=== PATIENT | female | born 1940 | race Caucasian/White ===

== ENCOUNTER 2021-11-16 08:57 | Emergency (ER) | payer MEDICARE, OTHER ==
[~2021-11-16] VITALS: Ht 170.2 cm; Wt 49.8 kg
[2021-11-16 10:32] LABS: HEMATOCRIT 44.4 % (37.0-47.0); IMMATURE GRANULOCYTES 0.5 % (0.0-5.0); MEAN CELL VOLUME 102.1 fL CALC (80.0-100.0); MEAN CORPUSCULAR HGB 34.5 pG CALC (26.0-32.0); MEAN CORPUSCULAR HGB CONC 33.8 g/dL CAL (32.0-36.0); NEUT# 7.02 thou/uL (2.00-7.15); RED BLOOD COUNT 4.35 mill/uL (4.20-5.60); RED CELL DISTRI WIDTH 14.3 % (11.5-15.5)
[2021-11-16 10:42] LABS: URINE BILIRUBIN - DIPSTICK NEGATIVE (NEGATIVE); URINE BLOOD DIPSTICK NEGATIVE (NEGATIVE); URINE COLOR YELLOW; URINE GLUCOSE - DIPSTICK NEGATIVE (NEGATIVE); URINE KETONE NEGATIVE (NEGATIVE); URINE LEUK ESTERASE NEGATIVE (NEGATIVE); URINE PH 7.5 (4.5-8.0); URINE PROTEIN - DIPSTICK NEGATIVE (NEG-TRACE); URINE SPECIFIC GRAVITY 1.015; URINE UROBILINOGEN - DIPSTICK 0.2 E.U./dL (0.2)
[2021-11-16 10:44] LABS: URINE NITRITE - DIPSTICK NEGATIVE (Negative)
[2021-11-16 10:46] LABS: ALBUMIN 3.9 g/dL (3.2-5.0); ALKALINE PHOSPHATASE 157 u/l (38-126); AMYLASE 58 u/l (30-110); BUN 14 mg/dL (8-23); BUN/CREATININE RATIO 15 (12-20 (CALC)); CARBON DIOXIDE 19 mmol/l (22-30); CHLORIDE 105 mmol/l (95-108); CREATININE 0.9 mg/dL (0.5-1.0); GFR 60 ML/MIN (>=60 (CALC)); GFR FOR AFR.AMER. > 60 ML/MIN (>=60 (CALC)); LIPASE 23 u/l (23-300); MAGNESIUM 2.2 mg/dL (1.6-2.3); SGOT/AST 39 u/l (9-36); SODIUM 139 mmol/l (137-146); TOTAL PROTEIN 8.9 g/dL (6.3-8.2)
[2021-11-16 10:47] LABS: ANION GAP 21 (6-22 (CALC)); POTASSIUM 5.6 mmol/l (3.5-5.1)
[2021-11-16 10:49] LABS: ACT PARTIAL THROMBO TIME 26.5 SECONDS (20.0-32.5); INTERNATIONAL NORMALIZED RATIO 1.1 RATIO (0.7-1.3)
[2021-11-16] MEDS ORDERED: ZOFRAN4 MG/TAB PO (13:05)
[2021-11-16 14:08] VITALS: BP 140/71
== END 2021-11-16 13:45 | disposition home or self-care (01) ==
LOC: ED 08:57
DX: R13.10 Dysphagia, unspecified (principal); E86.0 Dehydration; G20 Parkinson's disease; Z87.440 Personal history of urinary (tract) infections; Z20.822 Contact with and (suspected) exposure to COVID-19; R94.31 Abnormal electrocardiogram [ECG] [EKG]

== ENCOUNTER 2021-11-29 07:15 | Day surgery (SDC) | payer MEDICARE, OTHER ==
[~2021-11-29] VITALS: Ht 170.2 cm; Wt 52.2 kg
[~2021-11-29 07:15] MED LIST: AMANTADINE100 MG PO; CALCIUM250 M1 PO; CARBIDOPA/LEVOD1 TA4 PO; DIVALPROEX SOD250 MG PO; MEMANTINE HYDROC5 MG PO; SIMVASTATIN40 MG PO; TRAZODONE50 MG PO; VITAMIN B COMPL1 TAB PO; ZOFRAN4 MG/TAB PO
[2021-11-29 09:27] VITALS: BP 112/62
== END 2021-11-29 09:50 | disposition home or self-care (01) ==
LOC: ORM 07:15
PROVIDERS: ATTEND Surgery
PROC: 0DH63UZ Insertion of Feeding Device into Stomach, Percutaneous Approach (ICD-10-PCS; principal; 2021-11-29)
DX: E43 Unspecified severe protein-calorie malnutrition (principal); Z68.1 Body mass index [BMI] 19.9 or less, adult; K29.70 Gastritis, unspecified, without bleeding; G20 Parkinson's disease; F02.80 Dementia in other diseases classified elsewhere, unspecified severity, without behavioral disturbance, psychotic disturbance, mood disturbance, and anxiety; G30.9 Alzheimer's disease, unspecified

== ENCOUNTER 2021-12-27 12:26 | Inpatient (IN) | payer MEDICARE, OTHER ==
[~2021-12-27] VITALS: Ht 170.2 cm; Wt 45.0 kg
[2021-12-27] VITALS (32 sets, daily range): BP systolic 96–156; BP diastolic 49–114
[~2021-12-27 12:26] MED LIST changes: +CARB/LEVO1 TA4 PO; -CARBIDOPA/LEVOD1 TA4 PO
[2021-12-27 13:28] LABS: ALKALINE PHOSPHATASE 140 u/l (38-126); BUN 22 mg/dL (8-23); BUN/CREATININE RATIO 32 (12-20 (CALC)); CARBON DIOXIDE 21 mmol/l (22-30); CHLORIDE 104 mmol/l (95-108); CREATININE 0.7 mg/dL (0.5-1.0); GFR > 60 ML/MIN (>=60 (CALC)); GFR FOR AFR.AMER. > 60 ML/MIN (>=60 (CALC)); SGOT/AST 23 u/l (9-36); SODIUM 137 mmol/l (137-146)
[2021-12-27 13:29] LABS: IMMATURE GRANULOCYTES 0.6 % (0.0-5.0); MEAN CELL VOLUME 104.5 fL CALC (80.0-100.0); MEAN CORPUSCULAR HGB CONC 31.6 g/dL CAL (32.0-36.0); NEUT# 9.86 thou/uL (2.00-7.15); RED BLOOD COUNT 3.58 mill/uL (4.20-5.60); RED CELL DISTRI WIDTH 15.3 % (11.5-15.5)
[2021-12-27 13:30] LABS: ALBUMIN 2.6 g/dL (3.2-5.0); ANION GAP 16 (6-22 (CALC)); BILIRUBIN, TOTAL 0.3 mg/dL (0.0-1.4); HEMATOCRIT 37.4 % (37.0-47.0); HEMOGLOBIN 11.8 g/dl (12.0-16.0); POTASSIUM 4.4 mmol/l (3.5-5.1); TOTAL PROTEIN 6.3 g/dL (6.3-8.2)
[2021-12-27 15:03] LABS: URINE BILIRUBIN - DIPSTICK NEGATIVE (NEGATIVE); URINE BLOOD DIPSTICK TRACE-INTACT (NEGATIVE); URINE COLOR YELLOW; URINE GLUCOSE - DIPSTICK NEGATIVE (NEGATIVE); URINE KETONE NEGATIVE (NEGATIVE); URINE PROTEIN - DIPSTICK TRACE mg/dL (NEG-TRACE); URINE UROBILINOGEN - DIPSTICK 0.2 E.U./dL (0.2)
[2021-12-27 15:10] LABS: URINE LEUK ESTERASE LARGE (NEGATIVE); URINE NITRITE - DIPSTICK POSITIVE (Negative)
[2021-12-27 15:15] LABS: URINE BACTERIA MANY hpf; URINE WBC >100 WBC/hpf (0-5)
[2021-12-27] MEDS ORDERED: ALPRAZOLAM0.25 MG PO (15:34)
[2021-12-28] VITALS (56 sets, daily range): BP systolic 83–147; BP diastolic 39–103
[2021-12-28 05:38] LABS: HEMATOCRIT 31.7 % (37.0-47.0); HEMOGLOBIN 10.1 g/dl (12.0-16.0); MEAN CELL VOLUME 105.3 fL CALC (80.0-100.0); MEAN CORPUSCULAR HGB 33.6 pG CALC (26.0-32.0); MEAN CORPUSCULAR HGB CONC 31.9 g/dL CAL (32.0-36.0); RED BLOOD COUNT 3.01 mill/uL (4.20-5.60); RED CELL DISTRI WIDTH 15.2 % (11.5-15.5)
[2021-12-28 05:46] LABS: ANION GAP 10 (6-22 (CALC)); BUN 15 mg/dL (8-23); BUN/CREATININE RATIO 25 (12-20 (CALC)); CARBON DIOXIDE 22 mmol/l (22-30); CHLORIDE 112 mmol/l (95-108); CREATININE 0.6 mg/dL (0.5-1.0); GFR > 60 ML/MIN (>=60 (CALC)); GFR FOR AFR.AMER. > 60 ML/MIN (>=60 (CALC)); MAGNESIUM 2.1 mg/dL (1.6-2.3); POTASSIUM 4.9 mmol/l (3.5-5.1); SODIUM 139 mmol/l (137-146)
[2021-12-29] VITALS (26 sets, daily range): BP systolic 87–159; BP diastolic 43–103
[2021-12-29 05:49] LABS: HEMATOCRIT 32.1 % (37.0-47.0); HEMOGLOBIN 10.4 g/dl (12.0-16.0); MEAN CELL VOLUME 100.6 fL CALC (80.0-100.0); MEAN CORPUSCULAR HGB 32.6 pG CALC (26.0-32.0); MEAN CORPUSCULAR HGB CONC 32.4 g/dL CAL (32.0-36.0); RED BLOOD COUNT 3.19 mill/uL (4.20-5.60); RED CELL DISTRI WIDTH 14.9 % (11.5-15.5)
[2021-12-29 06:01] LABS: ALBUMIN 2.3 g/dL (3.2-5.0); BILIRUBIN, TOTAL 0.2 mg/dL (0.0-1.4); BUN 5 mg/dL (8-23); BUN/CREATININE RATIO 10 (12-20 (CALC)); CARBON DIOXIDE 26 mmol/l (22-30); CHLORIDE 105 mmol/l (95-108); CREATININE 0.4 mg/dL (0.5-1.0); GFR > 60 ML/MIN (>=60 (CALC)); GFR FOR AFR.AMER. > 60 ML/MIN (>=60 (CALC)); MAGNESIUM 1.7 mg/dL (1.6-2.3); SODIUM 136 mmol/l (137-146); TOTAL PROTEIN 5.6 g/dL (6.3-8.2)
[2021-12-29 06:06] LABS: ALKALINE PHOSPHATASE 271 u/l (38-126); ANION GAP 9 (6-22 (CALC)); POTASSIUM 3.6 mmol/l (3.5-5.1); SGOT/AST 50 u/l (9-36)
[2021-12-30] VITALS (16 sets, daily range): BP systolic 82–152; BP diastolic 46–111
[2021-12-30 05:35] LABS: HEMATOCRIT 32.9 % (37.0-47.0); HEMOGLOBIN 10.7 g/dl (12.0-16.0); MEAN CELL VOLUME 99.4 fL CALC (80.0-100.0); MEAN CORPUSCULAR HGB 32.3 pG CALC (26.0-32.0); MEAN CORPUSCULAR HGB CONC 32.5 g/dL CAL (32.0-36.0); RED BLOOD COUNT 3.31 mill/uL (4.20-5.60); RED CELL DISTRI WIDTH 14.9 % (11.5-15.5)
[2021-12-30 06:12] LABS: ALBUMIN 2.3 g/dL (3.2-5.0); ALKALINE PHOSPHATASE 251 u/l (38-126); ANION GAP 7 (6-22 (CALC)); BUN 4 mg/dL (8-23); BUN/CREATININE RATIO 11 (12-20 (CALC)); CARBON DIOXIDE 26 mmol/l (22-30); CHLORIDE 106 mmol/l (95-108); CREATININE 0.4 mg/dL (0.5-1.0); GFR > 60 ML/MIN (>=60 (CALC)); GFR FOR AFR.AMER. > 60 ML/MIN (>=60 (CALC)); MAGNESIUM 1.6 mg/dL (1.6-2.3); POTASSIUM 3.7 mmol/l (3.5-5.1); SGOT/AST 28 u/l (9-36); SODIUM 136 mmol/l (137-146); TOTAL PROTEIN 5.6 g/dL (6.3-8.2)
[2021-12-30 06:13] LABS: BILIRUBIN, TOTAL 0.3 mg/dL (0.0-1.4)
[2021-12-31 05:00] VITALS: BP 128/65
[2021-12-31 05:39] LABS: HEMATOCRIT 32.7 % (37.0-47.0); HEMOGLOBIN 10.6 g/dl (12.0-16.0); MEAN CELL VOLUME 100.3 fL CALC (80.0-100.0); MEAN CORPUSCULAR HGB 32.5 pG CALC (26.0-32.0); MEAN CORPUSCULAR HGB CONC 32.4 g/dL CAL (32.0-36.0); RED BLOOD COUNT 3.26 mill/uL (4.20-5.60); RED CELL DISTRI WIDTH 14.8 % (11.5-15.5)
[2021-12-31 05:59] LABS: ANION GAP 8 (6-22 (CALC)); BUN 6 mg/dL (8-23); BUN/CREATININE RATIO 14 (12-20 (CALC)); CARBON DIOXIDE 26 mmol/l (22-30); CHLORIDE 106 mmol/l (95-108); CREATININE 0.4 mg/dL (0.5-1.0); GFR > 60 ML/MIN (>=60 (CALC)); GFR FOR AFR.AMER. > 60 ML/MIN (>=60 (CALC)); MAGNESIUM 1.7 mg/dL (1.6-2.3); POTASSIUM 3.7 mmol/l (3.5-5.1); SODIUM 137 mmol/l (137-146)
[2021-12-31 07:48] VITALS: BP 126/84
[2021-12-31 10:29] VITALS: BP 139/68
[2021-12-31] MEDS ORDERED: LOPRESSOR25 MG PO (12:04)
[2021-12-31] MEDS ORDERED: TRAMADOL HCL50 MG PO (12:11)
== END 2021-12-31 15:25 | DRG 853 ==
LOC: ED 12:26 → ED-I 14:50 → ED 15:26 → ICU 15:27 → MS2 12-30 14:49
PROVIDERS: Family Medicine; Hospitalist; ADMIT Internal Medicine; ATTEND Internal Medicine
PROC: 0T9B70Z Drainage of Bladder with Drainage Device, Via Natural or Artificial Opening (ICD-10-PCS; principal; 2021-12-28)
PROC: 0JB70ZZ Excision of Back Subcutaneous Tissue and Fascia, Open Approach (ICD-10-PCS; 2021-12-28)
DX: A41.9 Sepsis, unspecified organism (principal); L89.154 Pressure ulcer of sacral region, stage 4; N39.0 Urinary tract infection, site not specified; E46 Unspecified protein-calorie malnutrition; Z68.1 Body mass index [BMI] 19.9 or less, adult; L89.150 Pressure ulcer of sacral region, unstageable; G20 Parkinson's disease; C44.40 Unspecified malignant neoplasm of skin of scalp and neck; C44.90 Unspecified malignant neoplasm of skin, unspecified; E78.5 Hyperlipidemia, unspecified; F32.A Depression, unspecified; F41.9 Anxiety disorder, unspecified; R32 Unspecified urinary incontinence; B95.61 Methicillin susceptible Staphylococcus aureus infection as the cause of diseases classified elsewhere; Z85.038 Personal history of other malignant neoplasm of large intestine; Z92.3 Personal history of irradiation; Z92.21 Personal history of antineoplastic chemotherapy; Z93.1 Gastrostomy status; Z87.440 Personal history of urinary (tract) infections; Z20.822 Contact with and (suspected) exposure to COVID-19
CPT/HCPCS: J0131; J1650; J3370; J3475; J3490; Q9967; S0164

== ENCOUNTER 2021-12-31 22:57 | Emergency (ER) | payer MEDICARE, OTHER ==
[~2021-12-31] VITALS: Ht 170.2 cm; Wt 48.0 kg
[~2021-12-31 22:57] MED LIST changes: +ALPRAZOLAM0.25 MG PO; +LOPRESSOR25 MG PO; +TRAMADOL HCL50 MG PO
[2021-12-31 23:15] VITALS: BP 131/90
[2021-12-31 23:30] VITALS: BP 152/89
[2021-12-31 23:45] VITALS: BP 142/84
[2022-01-01] VITALS (13 sets, daily range): BP systolic 129–157; BP diastolic 75–92
== END 2022-01-01 03:26 ==
LOC: ED 22:57
DX: Z43.1 Encounter for attention to gastrostomy (principal); G20 Parkinson's disease; F41.9 Anxiety disorder, unspecified; Z85.048 Personal history of other malignant neoplasm of rectum, rectosigmoid junction, and anus; Z92.21 Personal history of antineoplastic chemotherapy

== ENCOUNTER 2022-01-04 10:34 | Inpatient (IN) | payer MEDICARE, OTHER ==
[2022-01-04] VITALS (56 sets, daily range): BP systolic 96–169; BP diastolic 50–104
[~2022-01-04] VITALS: Ht 152.4 cm; Wt 42.3 kg
--- NOTE | 2022-01-04 10:34 | NUR ---
PT ARRIVES TO ER VIA EMS FROM [facility] FOR REPORTED DIFFICULTY BREATHING, COUGH, ACCELERATED HR. PT PRESENTS WITH JOSÉ MIGUEL FROM FACILITY
[2022-01-04 11:31] LABS: HEMATOCRIT 35.1 % (37.0-47.0); HEMOGLOBIN 11.4 g/dl (12.0-16.0); IMMATURE GRANULOCYTES 0.1 % (0.0-5.0); MEAN CORPUSCULAR HGB 32.5 pG CALC (26.0-32.0); MEAN CORPUSCULAR HGB CONC 32.5 g/dL CAL (32.0-36.0); NEUT# 20.3 thou/uL (2.00-7.15); RED BLOOD COUNT 3.51 mill/uL (4.20-5.60); RED CELL DISTRI WIDTH 15.7 % (11.5-15.5)
[2022-01-04 11:39] LABS: ALBUMIN 2.2 g/dL (3.2-5.0); BILIRUBIN, TOTAL 0.4 mg/dL (0.0-1.4); CHLORIDE 110 mmol/l (95-108); CREATININE 0.5 mg/dL (0.5-1.0); GFR > 60 ML/MIN (>=60 (CALC)); GFR FOR AFR.AMER. > 60 ML/MIN (>=60 (CALC)); SGOT/AST 32 u/l (9-36); SODIUM 138 mmol/l (137-146); TOTAL PROTEIN 5.4 g/dL (6.3-8.2)
[2022-01-04 11:40] LABS: POTASSIUM 4.1 mmol/l (3.5-5.1)
[2022-01-04 11:41] LABS: ALKALINE PHOSPHATASE 119 u/l (38-126); ANION GAP 16 (6-22 (CALC)); BUN 40 mg/dL (8-23); BUN/CREATININE RATIO 80 (12-20 (CALC)); CARBON DIOXIDE 16 mmol/l (22-30)
[2022-01-04 11:45] LABS: URINE BILIRUBIN - DIPSTICK NEGATIVE (NEGATIVE); URINE BLOOD DIPSTICK TRACE-INTACT (NEGATIVE); URINE COLOR YELLOW; URINE GLUCOSE - DIPSTICK NEGATIVE (NEGATIVE); URINE KETONE TRACE mg/dL (NEGATIVE); URINE LEUK ESTERASE TRACE (NEGATIVE); URINE PH 5.5 (4.5-8.0); URINE UROBILINOGEN - DIPSTICK 0.2 E.U./dL (0.2)
[2022-01-04 11:46] LABS: URINE NITRITE - DIPSTICK NEGATIVE (Negative); URINE PROTEIN - DIPSTICK Trace mg/dL (NEG-TRACE)
--- NOTE | 2022-01-04 14:05 | NUR ---
PATIENT APPEARED IN ER WITH ELEVATED RESPIRATORY RATE, HR, AND AFTER LABS RETURNED, ELEVATED LACTIC AND WBC. IVF WERE STARTED IMMEDIATELY. TEMP ON ARRIVAL WAS 100.8 RECTAL. PATIENT HAS A NECROTIC SACRAL ULCER APPROX. 5 CM BY 5.5 CM WITH A MOSTLY ROUND APPEARANCE. PATIENT HAS LOOSE, WATERY STOOL WITH A FOUL ODOR WELL. HER ABDOMEN IS FIRM. A PEG TUBE IS IN PLACE, BUT NOT IN USE. A VALDEZ CATH IS IN PLACE DRAINING DARK YELLOW URINE. CENTRAL LINE PLACEMENT BY DR. ROBERTS IN RIGHT GROIN. PATIENT STABLE AND TALKING. 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 THE DAUGHTER WAS CONTACTED ABOUT THE PATIENT'S CONDITION.
--- NOTE | 2022-01-04 15:17 | NUR ---
Admission Note Report Given to: Transported by: Wheelchair X Stretcher Transported with: X Nurse Transporter X Patent IV X O2 X Measurement Superintendent Location: X ICU MS2 PT TRANSPORTED TO ICU VIA NURSE MONITOR WITH RT
--- NOTE | 2022-01-04 16:48 | NUR ---
BIPAP STANDBY. PLACED ON 4L NC.
--- NOTE | 2022-01-04 17:00 | NUR ---
RT HAS REMOVED BIPAP AND PLACED PT ON HUMIDIFIED 6L. PT O2 SAT 92%
--- NOTE | 2022-01-04 17:01 | NUR ---
PT ARRIVED FROM ED WITH RN AND RT. PT HAS BIPAP IN PLACE ON 40%. PT IS A&O TO SELF AND PLACE. PT IS ABLE TO FOLLWO COMMANDS AND MAKE HER NEEDS KNOWN. PT HAS NO C/O PAIN OR CP. PT HAS WEAK BEADING SAWYER AND GENERALIZED WEAKNESS TO ALL EXTREMITIES. PT HAS HELL PROTECTORS IN PLACE, NO OPEN WOUNDS TO PT HEELS. PT HAS A LLE SKIN TEAR, SCALY, DRY, ECCHYMOTIC AND NOTATED ABRAIONS ALL OVER. PT HAS SCARAL WOUND. CX WAS OBTAINED, AND PICTURES WERE DOCUMENTED AND PLACED IN PT CHART. PT HAS RAISED SKIN LESION TO LEFT HAIRLINE, AND LEFT PROTRUDING LESION UNDER PT LEFT EAR. PT HAS TELE IN PLACE WITH HR 126. PT HAS PEG SITE FILLED WITH A DARK BROWN COLOR. CONTENTS WERE ASPIRATED AND HAD FOUL ODOR OF FECAL MATTER. DR WAS MADE AWARE. 12 FR VALDEZ WAS PLACED PER DR ORDER. PT HAS RIGHT GROIN CL, DRESSING CDI, VANCO IS RUNNING. PT HAS BEEN ORIENTED TO ROOM, AND CALL LIGHT HAS BEEN PLACED NEAR PT. PT SAFETY PRECAUTIONS IN PLACE. PT WILL CONTINUED TO BE MONITORED.
--- NOTE | 2022-01-04 19:05 | NUR ---
REPORT RECEIVED BY Yair COX RN AT BEDSIDE. PT RESTING COMFORTABLY. CARE OF PT ASSIGNED TO Raji MARTINEZ RN.
--- NOTE | 2022-01-04 20:30 | NUR ---
PHYSICAL ASSESMENT COMPLETE. PT CURRENTLY DENIES PAIN OR DISCOMFORT. SCHEDULED MEDICATIONS AND PRN MEDICATION ADMINISTERED, SEE E-MAR. FLUIS BOLUS 0F [address] HARO ORDERS GIVEN. PT HAS A 12 G VALDEZ INSERTED AND SECURED AND RUNNING TO GRAVITY. PT DENIES ANY NEEDS AT THIS TIME. PLAN OF CARE REVIEWED, PT DENIES QUESTIONS, VERBALIZES UNDERSTANDING. ITEMS WITHIN REACH, BED LOCKED IN LOW POSITION W/ BEDRAILS UP X2. CALL LARES WITHIN REACH, AGREES TO CALL PRN.
--- NOTE | 2022-01-04 23:17 | NUR ---
PT RESTING WITH EYES CLOSED; IN NO APPARENT DISTRESS; RESTRAITS RELEASED AND REAPPLIED FOR NURSING CARE; VALDEZ CATHETER IS SECURE AND FLOWING TO GRAVITY; ST WITH PVCS ON HEART MONITOR; IV ACCESS IN [facility] GROIN IS INTACT AND PATENT; CALL LIGHT WITHIN REACH; WILL CONTINUE TO MONITOR.
[2022-01-05] VITALS (27 sets, daily range): BP systolic 100–144; BP diastolic 54–73
--- NOTE | 2022-01-05 02:40 | NUR ---
PT SLEEPING COMFORTABLE, NO APPARENT DISTRESS. RT IN ROOM ADJUSTING O2.
--- NOTE | 2022-01-05 04:00 | NUR ---
PT RESTING IN BED, NO SIGNS OF DISTRESS NOTED. PT VOICES NO NEEDS OR COMPLAINTS AT THIS TIME. CALL LIGHT IN REACH, CONTINUE TO MONITOR.
[2022-01-05 05:17] LABS: MEAN CELL VOLUME 99.3 fL CALC (80.0-100.0); MEAN CORPUSCULAR HGB CONC 33.2 g/dL CAL (32.0-36.0); RED BLOOD COUNT 2.7 mill/uL (4.20-5.60); RED CELL DISTRI WIDTH 15.4 % (11.5-15.5)
--- NOTE | 2022-01-05 05:22 | NUR ---
BLOOD DRAW. PT TOLERATED PROCEDURE WELL.
[2022-01-05 05:24] LABS: HEMATOCRIT 26.8 % (37.0-47.0); HEMOGLOBIN 8.9 g/dl (12.0-16.0)
[2022-01-05 05:40] LABS: BUN 25 mg/dL (8-23); BUN/CREATININE RATIO 58 (12-20 (CALC)); CHLORIDE 114 mmol/l (95-108); CREATININE 0.4 mg/dL (0.5-1.0); GFR > 60 ML/MIN (>=60 (CALC)); GFR FOR AFR.AMER. > 60 ML/MIN (>=60 (CALC)); MAGNESIUM 1.9 mg/dL (1.6-2.3); SODIUM 142 mmol/l (137-146)
[2022-01-05 06:06] LABS: ANION GAP 7 (6-22 (CALC)); CARBON DIOXIDE 24 mmol/l (22-30); POTASSIUM 3.2 mmol/l (3.5-5.1)
--- NOTE | 2022-01-05 08:00 | NUR ---
PATIENT IS A/O , 2MM PERRL BILATERAL EYES. APPEARS SLEEPY, WAS ABLE TO FOLLOW COMMANDS AND HELP WITH TURNING SIDE TO SIDE TO CLEAN HER UP, HAD A LOOSE AND FIRM BOWEL MOVEMENT. SACARL WOUND IS YELLOW, RED AROUND THE EDGES, SMELLS BAD, PATIENT STATED THAT SHE DOES HAVE SOME PAIN DOWN THERE. NEW DRESSING APPLIED. BED BATH GIVEN. SHEETS CHAHNGED. COOL/DRY SKIN, APPLIED WARM BLANKETS. WOUND ON HER LEFT LOWER ARM, CLEAN DRY AND INTACT. DIMINISHED LUNG SOUNDS. ABDOMEN FLAT, NON DISTENDED, NON TENDER, ACTIVE BOWEL SOUNDS. BRUSIES AND SCABS SCATTERED THROUGHOUT HER BODY. EDEMA BILATERAL FEET 1+ PITTING. WEAK PEDAL PULSES, PURPLE BOOTS ARE ON, LOWER LEGS ELEVATED WITH THE BOOTS. SAEFTY MEASURES IN PLACE. CALL LIGHT IN REACH. WILL CONTINUE TO MONITOR PER HOSPITAL'S POLICY.
--- NOTE | 2022-01-05 10:00 | NUR ---
daughter is at bedside, watching tv with her. update was given.
--- NOTE | 2022-01-05 11:00 | NUR ---
NASIR FROM "[facility]", DIDNT HAVE PATIENT CODE, WAS UNABLE TO VERIFY IF WHAT HE WAS SAYING WAS TRUE. NO UPDATE WAS GIVEN.
--- NOTE | 2022-01-05 13:00 | NUR ---
DR. HAIRSTON AT BEDSIDE, TALKING ABOUT A PROCEDURE FOR TOMORROW MORNING.
--- NOTE | 2022-01-05 14:38 | NUR ---
PATIENT GAVE VERBAL CONSENT ALSO RECIEVED A VERBAL CONSENT FROM HER DAUGHTER TO FOLLOW THROUGH WITH THE PROCEDURE.
--- NOTE | 2022-01-05 15:47 | NUR ---
patient had another bowel movement, liquid and brown. patient was washed up, new pad placed on bed, new wound dressing applied. hallmark was put on the TV per patient's request. now patient is resting in bed.
--- NOTE | 2022-01-05 17:00 | NUR ---
PATIENT RECIEVED ORAL CARE EVERY TWO HOURS, HOSPITAL'S LIP BALM WAS APPLIED ON HER CRACKED LIPS WELL. ORAL CARE LOOKS MUCH BETTER NOW THAN EARLIER THIS MORNING. PATIENT WILL REMAIN NPO FOR DEBRIDMENT/WOUND VAC WITH DR. HAIRSTON TOMORROW MORNING. NORMAL SALINE STILL RUNNING FOR HYDRATION.
--- NOTE | 2022-01-05 18:35 | NUR ---
patient is clean, wound dressing clean dry and intact, vitals are stable. safety measures in place. oral care provided once more. tv on. call light in reach.
--- NOTE | 2022-01-05 19:03 | NUR ---
REPORT RECEIVED BY Amy BENNETT RN AT BEDSIDE. PT RESTING COMFORTABLY. CARE OF PT ASSIGNED TO Raji MARTINEZ RN.
--- NOTE | 2022-01-05 20:03 | NUR ---
PT ADMISSION ASSESSMENT COMPLETED AT THIS TIME; PT ALERT AND ORIENTED; DENIES ANY PAIN; NO N/V; C/O OF SHORTNESS OF BREATH UPON EXERTION; RESP ARE REGULAR BUT SHALLOW; LUNG SOUNDS DIMINISHED THROUGHOUT; SKIN COLOR WNL; WEAK PULSES; 2+ EDEMA TO BILATERAL FEET; ST ON HEART MONITOR; PEG TUBE PRESENT NON- FUNCTIONING; PT IS NPO; VALDEZ CATHETER DRAINING CLEAR YELLOW URINE TO GRAVITY; TRIPLE FEMORAL CENTRAL LINE FLUSHED AND PATENT; NO REDNESS OR EDEMA NOTED TO SITE; PLAN OF CARE/MEDS EXPLAINED; CALL LIGHT WITHIN REACH; WILL CONTINUE TO MONITOR.
--- NOTE | 2022-01-06 00:25 | NUR ---
PT RESTING WITH EYES CLOSED; IN NO APPARENT DISTRESS; VALDEZ CATHETER IS SECURE AND FLOWING TO GRAVITY; SR WITH PVCS ON HEART MONITOR; TRIPLE LUMEN FEMORAL LINE IS INTACT AND PATENT; CALL LIGHT WITHIN REACH; WILL CONTINUE TO MONITOR.
--- NOTE | 2022-01-06 02:02 | NUR ---
PT RESTING IN BED, NO SIGNS OF DISTRESS NOTED, RESP EVEN AND UNLABORED. PT VOICES NO NEEDS OR COMPLAINTS AT THIS TIME. CALL LIGHT IN REACH, CONTINUE TO MONITOR.
[2022-01-06 05:42] LABS: HEMATOCRIT 28.3 % (37.0-47.0); HEMOGLOBIN 9.2 g/dl (12.0-16.0); MEAN CELL VOLUME 101.1 fL CALC (80.0-100.0); MEAN CORPUSCULAR HGB 32.9 pG CALC (26.0-32.0); MEAN CORPUSCULAR HGB CONC 32.5 g/dL CAL (32.0-36.0); RED BLOOD COUNT 2.8 mill/uL (4.20-5.60)
[2022-01-06 05:56] LABS: BUN 13 mg/dL (8-23); BUN/CREATININE RATIO 34 (12-20 (CALC)); CARBON DIOXIDE 21 mmol/l (22-30); CHLORIDE 118 mmol/l (95-108); CREATININE 0.4 mg/dL (0.5-1.0); GFR > 60 ML/MIN (>=60 (CALC)); GFR FOR AFR.AMER. > 60 ML/MIN (>=60 (CALC)); MAGNESIUM 1.9 mg/dL (1.6-2.3); SODIUM 146 mmol/l (137-146)
[2022-01-06 05:58] LABS: ANION GAP 10 (6-22 (CALC)); POTASSIUM 2.9 mmol/l (3.5-5.1)
--- NOTE | 2022-01-06 07:00 | NUR ---
PT IS RESTING IN BED, PT WAKES TO VERBAL STIMULI. PT IS A&O X3. PT HAS NO C.O PAIN, SOB OR ANY CP. PT HAS HAD A SMALL BM AND HAS BEEN CLEANED. PT IS ABLE TO ASSIST WITH TURNING. PT HAS GENERAL WEAKNESS. PT IS ABLE TO FOLLOW COMMANDS TO BEST, AND IS ABLE TO VOICE NEEDS OR CONCERNS. POC WAS DISCUSSED WITH PT. PT UNDERSTANDS WITH HEAD NOD. PT VSS. PT HAD NS IVF RUNNING @ 125ML/HR AND PT HAS VANCO, INFUSION IS ALMOST COMPLETE. PT HAS SAFETY PRECAUTIONS IN PLACE AND CALL LIGHT NEAR. WILL CONTINUE TO MONITOR BRADEN.
--- NOTE | 2022-01-06 07:50 | NUR ---
Patient is screened for physical medicine intervention and would benefit from PT and OT consults if medical agrees
--- NOTE | 2022-01-06 09:35 | NUR ---
PT IS SLEEPING BUT EASILY AROUSED. PT HAS K INFUSING PER PROTOCOL, PT HAS BEEN UPDATED ON POC. SURGERY HAS BEEN CANCELLED DUE TO HYPOKALEMIA. PT HAS NO CHANGE TO ASSESSMENT, PT WILL CONTINUE TO MONITOR.
--- NOTE | 2022-01-06 09:45 | NUR ---
S: FRANCO CANTU is a 81 F who presents with sepsis, pneumonia, bacteremia. She has a history of arthritis, chemotherapy, seizure disorder, Parkinson's disease, and anxiety. All medications in patient's chart were reviewed. O: VS: BP 122/64 mmHg, P 129 bpm, RR 32 bpm,T 96.9 F W 52 kg, HT 5ft7in, Scr= 0.4 mg/dL, CrCl= 37.45 ml/min A: Blood culture shows Gram positive cocci in 4 of 4 bottles. Wound culture shows Escherichia coli with sensitity to Zosyn. P: Patient is on Zosyn 3.375 g IV q6h and fluconazole 200 mg IV q24h. Vancomycin ordered for pharmacy to dose. Start Vancomycin 750 mg IV Q12H. Vancomycin trough is drawn before the 4th dose on 01/07/2022 at 1700. Vancomycin goal trough is between 15-20 mcg/ml.
--- NOTE | 2022-01-06 11:56 | NUR ---
SPOKE TO PT DAUGHTER AND PROVIDED UPDATE.
--- NOTE | 2022-01-06 14:00 | NUR ---
PT WAS PROVIDED SOME THICKNED WATER, WHILE PT WAS DRINKING THIN LIQUIDS, PT BEGAN TO COUGH. DR WAS MADE AWARE. PT HAS NO C/O PAIN OR SOB. NO CHANGE TO PT ASSESSMENT. PT HAS CALL LIGHT NEAR AND TV WAS TURNED ON PER PT REQUESTS. WILL CONTINUE TO MONITOR PT.
--- NOTE | 2022-01-06 16:00 | NUR ---
PT IS SITTING UP IN BED WATCHING TV, INFORMED PT I WOULD LIKE TO BATHE HER, SHE STATED SHE WANTED TO WATCH THIS;REFERENCING TO THE TV. WILL ATTEMPT TO BATHE AT A LATER TIME. PT HAS NO C/O PAIN OR SOB. PT HAS CALL LIGHT NEAR AND WILL CONTINUE TO MONITOR.
--- NOTE | 2022-01-06 16:57 | NUR ---
Pt screened for OT intervention. Pt would benefit from skilled OT evaluation and services.
--- NOTE | 2022-01-06 17:18 | NUR ---
PRELIMINARY BLOOD CULTURE RESULTS CALLED TO DR TALBOT 12/23 GROWING GRAM + COCCI NO NEW ORDERS
--- NOTE | 2022-01-06 18:11 | NUR ---
PT HAD SMALL BM, PT WOUND DRESSING HAS BEEN CHANGED. PT HAS NO C/O PAIN. PT HAS NO CHANGE TO ASSESSMENT. PT HAS CALL LIGHT NEAR. PT WAS OFFERED FLUIDS. WILL CONTINUE TO MONITOR PT
--- NOTE | 2022-01-06 19:50 | NUR ---
awake. watching tv. nad. under ground miner shows sinus tach. o2 cont per nc. has dsg to coccyx cdi. skin in poor condition. scabs, skin tears & dressings on arms & legs. pt laying on back. spoke @ length regarding side to side position only. pt verbalized understanding. peg tube in place & is clamped. po fluids taken fair. santa cath in place. urine clear yellow. bilat heel protectors on. turned & repositioned. requires total care for all needs.
[2022-01-06 19:53] VITALS: BP 149/111
[2022-01-06 20:04] VITALS: BP 146/100
--- NOTE | 2022-01-06 21:00 | NUR ---
requested typesetting supervisor check on status of air mattress. typesetting supervisor spoke to bernadette carr. mattress would be here in the morning.
[2022-01-06 21:37] VITALS: BP 170/94
--- NOTE | 2022-01-06 21:50 | NUR ---
lab here. blood drawn.
[2022-01-06 22:00] VITALS: BP 154/92
[2022-01-06 22:20] LABS: ANION GAP 10 (6-22 (CALC)); BUN 11 mg/dL (8-23); BUN/CREATININE RATIO 31 (12-20 (CALC)); CARBON DIOXIDE 18 mmol/l (22-30); CHLORIDE 118 mmol/l (95-108); CREATININE 0.4 mg/dL (0.5-1.0); GFR > 60 ML/MIN (>=60 (CALC)); GFR FOR AFR.AMER. > 60 ML/MIN (>=60 (CALC)); POTASSIUM 3.2 mmol/l (3.5-5.1); SODIUM 143 mmol/l (137-146)
[2022-01-06 23:00] VITALS: BP 164/85
[2022-01-07] VITALS (23 sets, daily range): BP systolic 109–173; BP diastolic 53–126
--- NOTE | 2022-01-07 00:05 | NUR ---
PATIENT GIVEN PER ORDER 2MG IV ATIVAN FOR ANXIETY AT THIS TIME. SIDERAILS ARE UP CALL LIGHT IS WITHIN REACH. WILL CONTINUE TO MONITOR.
--- NOTE | 2022-01-07 01:00 | NUR ---
eyes closed. no distress.
--- NOTE | 2022-01-07 02:00 | NUR ---
eyes closed. no distress. hall monitor shows sinus tach pvcs.
--- NOTE | 2022-01-07 03:00 | NUR ---
eyes closed. no distress. santa draining well.
--- NOTE | 2022-01-07 04:00 | NUR ---
eyes closed. no apparent distress.
--- NOTE | 2022-01-07 05:00 | NUR ---
RIGHT FEMORAL TRIPLE LUMEN LINES FLUSHED PER PROTOCOL AND LABS DRAWN AT THIS TIME. EMS #[id number] GAUGE IV REMOVED FROM RIGHT FOREARM AT THIS TIME. PATIENT RESTED WITH EYES CLOSES AND RESPIRATIONS EASY AND UNLABORED. SIDERAILS ARE UP CALL LIGHT IS WTIHIN REACH.
[2022-01-07 05:17] LABS: HEMATOCRIT 28.5 % (37.0-47.0); HEMOGLOBIN 9.4 g/dl (12.0-16.0); IMMATURE GRANULOCYTES 0.4 % (0.0-5.0); MEAN CORPUSCULAR HGB 32.6 pG CALC (26.0-32.0); NEUT# 17.22 thou/uL (2.00-7.15); RED BLOOD COUNT 2.88 mill/uL (4.20-5.60); RED CELL DISTRI WIDTH 16.2 % (11.5-15.5)
[2022-01-07 06:00] LABS: ALBUMIN 1.8 g/dL (3.2-5.0); BUN 10 mg/dL (8-23); BUN/CREATININE RATIO 25 (12-20 (CALC)); CHLORIDE 116 mmol/l (95-108); CREATININE 0.4 mg/dL (0.5-1.0); GFR > 60 ML/MIN (>=60 (CALC)); GFR FOR AFR.AMER. > 60 ML/MIN (>=60 (CALC)); MAGNESIUM 1.8 mg/dL (1.6-2.3); POTASSIUM 2.9 mmol/l (3.5-5.1); SGOT/AST 36 u/l (9-36); SODIUM 143 mmol/l (137-146); TOTAL PROTEIN 4.7 g/dL (6.3-8.2)
--- NOTE | 2022-01-07 06:00 | NUR ---
monitoring manager shows sinus tach.
[2022-01-07 06:07] LABS: ALKALINE PHOSPHATASE 194 u/l (38-126); ANION GAP 6 (6-22 (CALC)); BILIRUBIN, TOTAL 0.7 mg/dL (0.0-1.4); CARBON DIOXIDE 24 mmol/l (22-30)
--- NOTE | 2022-01-07 06:31 | NUR ---
XRAY HERE. PCXR OBTAINED.
--- NOTE | 2022-01-07 07:50 | NUR ---
LEFT A VOICEMAIL FOR HER DAUGHTER, DR. DELACRUZ WANTED TO SPEAK TO HER.
--- NOTE | 2022-01-07 07:53 | NUR ---
CALLED OR, THEY STATED THEY PLAN TO TAKE HER BUT "LATER ON IN THE DAY, UNABLE TO GIVE AN EXACT TIME FOR YOU OF RIGHT NOW". WILL BE REPLACING HER K WITH RIDERS PER DOCTOR'S ORDERS.
--- NOTE | 2022-01-07 08:00 | NUR ---
PATIENT IS A/O X3, ABLE TO MAKE NEEDS KNOWN, SOFT SPOKEN, TREMERS PRESENT, STATED SHE IS NOT COLD. DENIES PAIN AT THIS TIME. LUNGS ARE CLEAR TO DIMINSHED. WET/WEAK COUGH. ACTIVE BOWEL SOUNDS, SOFT, SLIGHTLY TENDER ABDOMEN. FLAT ABDOMEN. EDEMA 2+ RIGHT LOWER ARM/HAND. EDEMA 1/2+ PITTING IN BILATERAL LOWER LEGS, AND 2+ PITTING FEET. SCABS AND BRUSIES SCATTERED THROUGHOUT ARMS AND LEGS. PRIOR SKIN TEAR ON LEFT LOWER ARM, CLEAN DRY AND INTACT DRESSING. HAD A SMALL BM, CLEANED AND BED BATH GIVEN. ORAL CARE PROVIDED. COCCYX WOUND IS CLEAN DRY AND INTACT. 8L O2NC. NON LABOR BREATHING. FLUIDS RUNNING. IV FLUID TUBING REPLACED. FLUSHED CENTRAL LINES. POSSIBLE SUGERY TODAY, NPO, SAFETY MEASURES IN PLACE. CALL LIGHT IN REACH. TV ON AND ON HIGH VOLUME. WILL CONTINUE TO MONITOR PER HOSPITAL POLICY.
--- NOTE | 2022-01-07 08:40 | NUR ---
CALLED PHARMACY SPOKE TO VALENCIA, SHE STATED "GO AHEAD AND GIVE THE POTASSIUM (RIDERS) AND LEAVE THE TIMES THE WAY THEY ARE AND GIVE IT LIKE YOU NORMALLY WILL". THEN CALLED BACK ASKING IF WE CAN CHANGE THE DURATION OF THE K RIDERS DUE TO HER HAVING A CENTRAL LINE, SHE STATED YES IT CAN RUN 20MEQ OVER ONE HOUR WITH CENTRAL LINES. UPDATED .
--- NOTE | 2022-01-07 09:53 | NUR ---
SPOKE TO DAUGHTER MAKSIM, SHE CALLED US BACK, WILL INFORM DR. DELACRUZ.
--- NOTE | 2022-01-07 11:16 | NUR ---
CALLED PLACED FOR WOUND VAC [id number] SPK TO VENECIA GIVEN REF# [id number]
--- NOTE | 2022-01-07 11:21 | NUR ---
patient left to OR with two nurses at bedside from OR. chart sent, vitals stable, saftey measures in place for transfer.
--- NOTE | 2022-01-07 11:27 | NUR ---
DR. DELACRUZ UPDATED DAUGHTER PATI. ALSO INFORMED HER THAT SHE JUST LEFT FOR SURGERY.
--- NOTE | 2022-01-07 13:07 | NUR ---
PULMONOLOGY DR. SAM, CALLED. PATIENT STILL IN O.R. DOCTOR STATED HE WILL TRY AND CALL BACK IN "A COUPLE OF HOURS".
--- NOTE | 2022-01-07 13:30 | NUR ---
PATIENT ARRIVED BACK ON THE FLOOR, STABLE, BEDSIDE REPORT GIVEN BY AGUEDA GIBSON.
--- NOTE | 2022-01-07 13:52 | NUR ---
S: FRANCO CANTU is a 81 F who presents with sepsis, bacteremia, and pneumonia. She has a history of arthritis, chemotherapy, seizure disorder, Parkinson's disease, and anxiety. All medications in patient's chart were reviewed. O: VS: BP 150/86 mmHg, P 125 bpm, RR 35 bpm, T 98.3 F W 52 kg, HT 5 ft7in, Scr= 0.4 mg/dL ,CrCl= 37.45 ml/min Vancomycin trough 01/06/22@1700 = 10 A: Blood culture shows Staphylococcus hominis which is sensitive to vancomycin. Wound culture shows E coli which is sensitive to Zosyn. Vancomycin subtherapeutic. Increase of dose is warranted. P: Patient is on Zosyn 3.375 g IV Q6H, vancomycin 750 mg IV q12h, and fluconazole 200 mg IV Q24H. Vancomycin ordered for pharmacy to dose. Increase Vancomycin to 1 g IV Q12H. Vancomycin trough is drawn before the 4th dose on 01/09/2022 at 0430. Vancomycin goal trough is between 15-20 mcg/ml Pharmacy will follow and or advise on antibiotics use as needed.
--- NOTE | 2022-01-07 14:00 | NUR ---
TELLE PULMONARY CONSULT WAS DONE, RECOMMENDATIONS WILL BE PLACED HIS DR SAM'S NOTES.
--- NOTE | 2022-01-07 14:15 | NUR ---
PATIENT ARRIVED ON THE FLOOR, AGUEDA GIBSON GAVE OFF BEDSIDE REPORT ABOUT THE PATIENT'S SURGERY.
[2022-01-07 16:14] LABS: ALBUMIN 1.9 g/dL (3.2-5.0); ALKALINE PHOSPHATASE 172 u/l (38-126); ANION GAP 7 (6-22 (CALC)); BILIRUBIN, TOTAL 0.8 mg/dL (0.0-1.4); BUN 9 mg/dL (8-23); BUN/CREATININE RATIO 24 (12-20 (CALC)); CARBON DIOXIDE 24 mmol/l (22-30); CHLORIDE 117 mmol/l (95-108); CREATININE 0.4 mg/dL (0.5-1.0); GFR > 60 ML/MIN (>=60 (CALC)); GFR FOR AFR.AMER. > 60 ML/MIN (>=60 (CALC)); POTASSIUM 3.1 mmol/l (3.5-5.1); SGOT/AST 32 u/l (9-36); SODIUM 144 mmol/l (137-146); TOTAL PROTEIN 4.9 g/dL (6.3-8.2)
--- NOTE | 2022-01-07 17:00 | NUR ---
DAUGHTER, PATI, TELLING MOTHER BYE AND THAT SHE WILL BE BACK TOMORROW IN THE LATE MORNING.
--- NOTE | 2022-01-07 19:30 | NUR ---
awake but drowsy. no acute distress. o2 cont per vapotherm. call out clerk shows sinus tach pvcs. rt fem line in place & saline locked. santa cath in place urine clear yellow. peg tube in place & clamped. wound vac cont. turned & repositioned. requires total are for all needs.
--- NOTE | 2022-01-07 20:12 | NUR ---
PATIENT TURNED AND REPOSITIONED IN BED BY STAFF
--- NOTE | 2022-01-07 20:45 | NUR ---
CPT NOT TOLERATED AT THIS TIME
--- NOTE | 2022-01-07 22:01 | NUR ---
hs medications given
--- NOTE | 2022-01-07 23:00 | NUR ---
xray here. pcxr obtained.
[2022-01-08] VITALS (37 sets, daily range): BP systolic 91–143; BP diastolic 42–109
--- NOTE | 2022-01-08 00:20 | NUR ---
PATIENT GIVEN 2MG IV ATIVAN FOR ANXIETY AT THIS TIME. SIDERAILS ARE UP CALL LIGHT IS WITHIN REACH. WILL CONTINUE TO MONITOR.
--- NOTE | 2022-01-08 01:00 | NUR ---
eyes closed. no distress. santa draining well.
--- NOTE | 2022-01-08 02:00 | NUR ---
resting quietly. resps remain shallow.
--- NOTE | 2022-01-08 03:00 | NUR ---
eyes closed. wound vac cont.
--- NOTE | 2022-01-08 04:00 | NUR ---
electrician powerhouse shows sinus tach. no distress.
--- NOTE | 2022-01-08 05:00 | NUR ---
lab here. blood drawn.
[2022-01-08 05:14] LABS: HEMATOCRIT 28.9 % (37.0-47.0); HEMOGLOBIN 9.3 g/dl (12.0-16.0); IMMATURE GRANULOCYTES 1.1 % (0.0-5.0); MEAN CORPUSCULAR HGB 31.8 pG CALC (26.0-32.0); MEAN CORPUSCULAR HGB CONC 32.2 g/dL CAL (32.0-36.0); NEUT# 11.07 thou/uL (2.00-7.15); RED BLOOD COUNT 2.92 mill/uL (4.20-5.60); RED CELL DISTRI WIDTH 16.3 % (11.5-15.5)
--- NOTE | 2022-01-08 05:22 | NUR ---
vitals not transferring from monitor to pts chart. attempted manual entry w/o success. paper vitals on chart.
--- NOTE | 2022-01-08 05:26 | NUR ---
[facility] CALLED DUE TO AIR MATTRESS READING ERROR ON AIR MATTRESS BOARD. [facility] NEUROPSYCHOLOGY MEDICAL CONSULTANT CALL AND WE TRIED TO TROUBLE SHOOT ISSUE TO NO AVAIL. [facility] REPRSENTATIVE STATED TURN MATTRESS OFF PATIENT WILL BE FINE ON MATTRESS AND THEY WILL BE OUT SOON TO FIX ISSUE. THIS NURSE NOTIFIED STUDIO ARTIST OF CONVERSATION WITH [facility] NEUROPSYCHOLOGY MEDICAL CONSULTANT.
[2022-01-08 05:40] LABS: ALBUMIN 1.9 g/dL (3.2-5.0); ALKALINE PHOSPHATASE 156 u/l (38-126); ANION GAP 6 (6-22 (CALC)); BILIRUBIN, TOTAL 0.6 mg/dL (0.0-1.4); BUN 12 mg/dL (8-23); BUN/CREATININE RATIO 28 (12-20 (CALC)); CARBON DIOXIDE 28 mmol/l (22-30); CHLORIDE 116 mmol/l (95-108); CREATININE 0.4 mg/dL (0.5-1.0); GFR > 60 ML/MIN (>=60 (CALC)); GFR FOR AFR.AMER. > 60 ML/MIN (>=60 (CALC)); MAGNESIUM 1.8 mg/dL (1.6-2.3); POTASSIUM 2.9 mmol/l (3.5-5.1); SGOT/AST 29 u/l (9-36); SODIUM 147 mmol/l (137-146); TOTAL PROTEIN 4.8 g/dL (6.3-8.2)
--- NOTE | 2022-01-08 07:01 | NUR ---
AN TX STOPPED EARLY. PT STATES SHE CAN'T HANDLE IT.
--- NOTE | 2022-01-08 07:04 | NUR ---
CPT NOT DONE. PT NOT ABLE TO TOLERATE.
--- NOTE | 2022-01-08 08:00 | NUR ---
Drowsy, but wakes up periodically highly anxious and distressed. Pt alert to place and self. Pt does follow simple commands. Pt reported pain and looked visibily distressed. Pt repositioned and PRN medication given. Pt tachypnic and tachycardic, blood pressure within normal limits. Will continue to monitor closely.
--- NOTE | 2022-01-08 10:00 | NUR ---
PT UNABLE TO TAKE PO MEDICATION. ORDER CURRENTLY SHOWS PT CAN HAVE CLEAR/THIN LIQUIDS. AFTER ASSESSMENT PT UNABLE TO SAFETLY TAKE PO MEDICATIONS OR DRINK FLUIDS. CONCERNED ABOUT ASPIRATION. SPOKE TO CARVER AND CHECKERER SPECIALS REGARDING PTS PEG TUBE BEING ACCESSED. RECEIVED ORDER TO ACCESS PEG TUBE TO GIVE MEDS.
--- NOTE | 2022-01-08 12:00 | NUR ---
No change in pts status at this time. Pt is drowsy but easily arousable. Answers questions appropriately and follows commands. Pt does not look to be distressed. Pt denies pain at this time.
--- NOTE | 2022-01-08 12:15 | NUR ---
PT POSITIVE FOR DVT LOWER EXTREMITY
--- NOTE | 2022-01-08 13:35 | NUR ---
Patient held due to her mutliple medical problems. She is being faithfull positioned per nursing and due to her DVT is not appropriate for OOB at this time
--- NOTE | 2022-01-08 14:15 | NUR ---
Pt daughter/YING Boyd at bedside. Provided detailed update regarding pts condition and treatment plan thus far. Pts daughter requested that pt be changed from a Full Code to a DNR. spoke to Nisha over the phone regarding change in code status. DNR form signed by Nisha and placed in pts chart.
--- NOTE | 2022-01-08 19:23 | NUR ---
REPORT RECEIVED BY THOM GIBSON AT BEDSIDE. PT RESTING COMFORTABLY. CARE OF PT ASSIGNED TO Raji MARTINEZ RN.
--- NOTE | 2022-01-08 20:34 | NUR ---
ASSESSMENT AND VITALS COMPLETED AT THIS TIME. RESPIRATIONS ARE SHALLOW, PT REPORTES SOB ON EXCERTION. NO SIGNS OF DISTRESS, O2 SAT 95% ON VAPOTHERM 25%. HEART RHYTHM IS ST ON MONITOR. BOWEL SOUNDS ARE ACTIVE IN ALL QUADRANTS, LAST REPORTED BM 01/08/22. RADIAL AND PEDAL PULSES ARE WEAK WITH NORMAL CAPILLARY REFILL. TRIPLE LUMEN RIGHT FEMORAL LINE FLUSHES WELL BUT DOES NOT DRAW BLOOD. SITE APPEARS HEALTHY AND PATENT. VALDEZ CATHATER IN PLACE. TUBING UNKINKED AND RUNNING WITH GRAVITY. PT PRESENTS WITH STAGE 4 PRESSURE ULCER ON SACRUM, WOUND VAC IN PLACE RUNNING AT 125 SUCTION. PT DOES NOT COMPLAINS PAIN OR DISCOMFORT. PT STATES NO ADDITIONAL NEEDS AT THIS TIME. ALL SAFETY PRECAUTIONS ARE IN PLACE WITH CALL LIGHT IN REACH. WILL CONTINUE TO MONITOR.
--- NOTE | 2022-01-08 22:00 | NUR ---
PT RESTING WITH EYES CLOSED; IN NO APPARENT DISTRESS; VALDEZ CATHETER IS SECURE AND FLOWING TO GRAVITY; SR WITH PVCS ON HEART MONITOR; TL FEMORAL LINE IS PATENT; CALL LIGHT WITHIN REACH; WILL CONTINUE TO MONITOR.
[2022-01-09] VITALS (51 sets, daily range): BP systolic 89–154; BP diastolic 43–91
--- NOTE | 2022-01-09 02:00 | NUR ---
EYES ARE CLOSED. WOUND VAC CONTINUES AT 125 MMGH.
[2022-01-09 04:28] LABS: HEMATOCRIT 29.8 % (37.0-47.0); HEMOGLOBIN 9.6 g/dl (12.0-16.0); MEAN CELL VOLUME 99.7 fL CALC (80.0-100.0); MEAN CORPUSCULAR HGB 32.1 pG CALC (26.0-32.0); MEAN CORPUSCULAR HGB CONC 32.2 g/dL CAL (32.0-36.0); RED BLOOD COUNT 2.99 mill/uL (4.20-5.60); RED CELL DISTRI WIDTH 16.6 % (11.5-15.5)
[2022-01-09 04:41] LABS: ALBUMIN 2.2 g/dL (3.2-5.0); BILIRUBIN, TOTAL 0.7 mg/dL (0.0-1.4); BUN 15 mg/dL (8-23); BUN/CREATININE RATIO 32 (12-20 (CALC)); CARBON DIOXIDE 28 mmol/l (22-30); CHLORIDE 116 mmol/l (95-108); CREATININE 0.5 mg/dL (0.5-1.0); GFR > 60 ML/MIN (>=60 (CALC)); GFR FOR AFR.AMER. > 60 ML/MIN (>=60 (CALC)); SGOT/AST 31 u/l (9-36); SODIUM 148 mmol/l (137-146); TOTAL PROTEIN 5.3 g/dL (6.3-8.2)
[2022-01-09 04:43] LABS: ALKALINE PHOSPHATASE 235 u/l (38-126); ANION GAP 8 (6-22 (CALC)); POTASSIUM 3.9 mmol/l (3.5-5.1)
--- NOTE | 2022-01-09 04:54 | NUR ---
PT REPOSITIONED ON HER RIGHT SIDE. PT GIVEN PRN MEDICATION FOR 8/10 PAIN. PT STATES SHE IS COMFORTABLE. WILL CONTINUE TO MONITOR.
--- NOTE | 2022-01-09 05:10 | NUR ---
VANCOMYCIN HELD. TROUGH OF 20.
--- NOTE | 2022-01-09 06:04 | NUR ---
Patient is resting quietly in bed. No acute changes noted. IMPROVED HR 102, RR 20. WILL CONTINUE TO MONITOR.
--- NOTE | 2022-01-09 08:00 | NUR ---
Pt drowsy, but following commands and answering questions appropriately. Pt tachycardic received Lopressor IV a few hours earlier. Pt denies pain at this time. All other vital signs are within normal limits. Will continue to monitor closely.
--- NOTE | 2022-01-09 08:07 | NUR ---
FIO2 DECREASED TO 45%.
--- NOTE | 2022-01-09 13:00 | NUR ---
PT STARTED ON JEVITY 1.5 DAILY BOLUS X 5 PER DAY. PLUS 60ML FLUSH BEFORE AND 60 ML FLUSH AFTER TUBE FEED.
--- NOTE | 2022-01-09 13:05 | NUR ---
S: FRANCO CANTU is a 81 F who presents with sepsis, bacteremia, and pneumonia. She has a history of arthritis, chemotherapy, seizure disorder, Parkinson's disease, and anxiety. All medications in patient's chart were reviewed. O: VS: BP 115/69 mmHg, P 100 bpm, RR 20 bpm,T W 52 kg, HT 5 ft 7 in, Scr= 0.5 mg/dL, CrCl= 37.45 ml/min A: Blood culture shows Staphylococcus hominis which is sensitive to vancomycin. Wound culture shows E coli which is sensitive to cefepime. P: Patient is on cefepime 1 g IV Q12H. Vancomycin ordered for pharmacy to dose. Start Vancomycin 750 mg IV Q12H. Vancomycin trough is drawn before the 4th dose on 01/11/2022 at 0430. Vancomycin goal trough is between 15-20 mcg/ml. Pharmacy will follow and or advise on antibiotics use as needed.
--- NOTE | 2022-01-09 19:00 | NUR ---
REPORT RECEIVED BY JASMIN GIBSON AT BEDSIDE. PT RESTING COMFORTABLY. CARE OF PT ASSIGNED TO Raji MARTINEZ RN.
--- NOTE | 2022-01-09 19:55 | NUR ---
PT APPEARS TO BE SLEEPING COMFORTABLY. NO APPARENT DISTRESS. PT ON VAPO THERM 20L AT 40%. R-SUBCLAVIAN TLC WITH NON-OCCLUSIVE DRESSING C/D/I INFUSING D51/2NS. SACARAL DECUBITUS ULCER WITH WOUND VAC IN PLACE RUNNING AT 125MMGH. VALDEZ SECURED TO LEG, TUBING UNKINKED AND UNOBSTRUCTED. DRAINING TO GRAVITY. PT RUNNING ST WITH PVCS. RESPRIATION ARE SHALLOW. WILL CONTINUE TO MONITOR,
--- NOTE | 2022-01-09 22:00 | NUR ---
PT RECEIEVED 532 ML OF JEVITY NUTRITION VIA PEG TUBE. PT TOLERATED PROCEDURE WELL. PT RESTING COMFORTABLY ON AN AIR MATTRESS; PLACED ON HER LEFT SIDE. WILL CONTINUE TO MONITOR.
[2022-01-10] VITALS (94 sets, daily range): BP systolic 84–141; BP diastolic 40–77
--- NOTE | 2022-01-10 02:30 | NUR ---
REMOVED TRIPLE LUMEN RIGHT FEMORAL CATHETER. SIGHT CLEANED; SITCHES REMOVED CLEAN AND INTACT. PT TOLERATEDOCEDURE WELL.
--- NOTE | 2022-01-10 03:52 | NUR ---
PT RESTING WITH EYES CLOSED; VALDEZ CATHETER IS SECURE AND FLOWING TO GRAVITY; St WITH PVCS ON HEART MONITOR; LEFT SUB CLAVIN LINE IS INTACT AND PATENT; CALL LIGHT WITHIN REACH; WILL CONTINUE TO MONITOR.
[2022-01-10 05:31] LABS: HEMATOCRIT 24.8 % (37.0-47.0); HEMOGLOBIN 7.9 g/dl (12.0-16.0); MEAN CORPUSCULAR HGB 31.9 pG CALC (26.0-32.0); MEAN CORPUSCULAR HGB CONC 31.9 g/dL CAL (32.0-36.0); RED BLOOD COUNT 2.48 mill/uL (4.20-5.60); RED CELL DISTRI WIDTH 16.7 % (11.5-15.5)
[2022-01-10 06:02] LABS: ALBUMIN 1.8 g/dL (3.2-5.0); ALKALINE PHOSPHATASE 217 u/l (38-126); BUN 17 mg/dL (8-23); BUN/CREATININE RATIO 40 (12-20 (CALC)); CARBON DIOXIDE 32 mmol/l (22-30); CHLORIDE 110 mmol/l (95-108); CREATININE 0.4 mg/dL (0.5-1.0); GFR > 60 ML/MIN (>=60 (CALC)); GFR FOR AFR.AMER. > 60 ML/MIN (>=60 (CALC)); MAGNESIUM 1.9 mg/dL (1.6-2.3); SGOT/AST 29 u/l (9-36); SODIUM 146 mmol/l (137-146); TOTAL PROTEIN 4.6 g/dL (6.3-8.2)
[2022-01-10 06:04] LABS: ANION GAP 7 (6-22 (CALC)); POTASSIUM 2.9 mmol/l (3.5-5.1)
[2022-01-10 06:05] LABS: BILIRUBIN, TOTAL 0.3 mg/dL (0.0-1.4)
--- NOTE | 2022-01-10 08:00 | NUR ---
pt resting in bed with eyes closed; easily aroused to verbal stimuli; no apparent distress noted at this time; assessment completed; pt alert to person only; appears drowsy; pt denies pain when asked; no n/v noted; resp tachypneic; lungs coarse/ diminished bases; skin color wnl; o2 per vapatherm at 20L with 40% FiO2; o2 sat 94%; construction area manager moist cough noted; hr reg; strong pulses; no edema noted; st 120-130s on monitor; abd soft with bs present; scant loose brown bm noted; pericare per bid writer; peg tube intact with zero residual; peg dressing due to be changed; santa to gravity draining well; cath strap intact; TLC flushed and patent to left subclavian; ivf/meds infusing without complication; no redness or edema noted at site; wound vac intact to sacral wound with low cont suction of 125mmHg; seal good/no leak detected; small drainage/bloody drainage to canaster; air mattress intact; pt repositioned to right side; pillows under left side; feet offloaded; pressure ulcer/eschar noted to right heel; heel protectors; hob elevated; will continue to monitor
--- NOTE | 2022-01-10 08:40 | NUR ---
Dr Alberts present at bedside to assess pt and discuss plan of care; MD informed of elevated HR; will continue to monitor
--- NOTE | 2022-01-10 09:30 | NUR ---
resting with eyes closed; easily aroused; am meds explained and administered; peg tube feed given at this time; o residual noted prior to feed; hob/ aspiration precautions continued; st on monitor; will continue to monitor
--- NOTE | 2022-01-10 10:10 | NUR ---
resting with eyes closed; st on monitor; o2 per vapotherm; iv intact and patent; santa to gravity; repositioned; will continue to monitor
--- NOTE | 2022-01-10 11:18 | NUR ---
PT Herberth present at bedside for eval and treatment
--- NOTE | 2022-01-10 12:00 | NUR ---
resting with eyes closed; st on monitor; santa to gravity; will continue to monitor
--- NOTE | 2022-01-10 14:05 | NUR ---
resting in bed with eyes closed; placed supine for TF; iv intact and patent; no redness or edema noted at site; st on monitor; santa to gravity; call light within reach; will continue to monitor
--- NOTE | 2022-01-10 15:00 | NUR ---
complete bed bath and linen change done; catheter care provided; dressing chnaged to wound vac at this time; see photo on chart; no seal leak detected post dressing change; dressing changed to lfa skin tear and peg tube site; repositioned to left side; hob elevated; will continue to monitor
--- NOTE | 2022-01-10 15:24 | NUR ---
I saw Ms Ochoa this morning for re- exam. She is still bedbound and very fragile. I noticed her tone was slightly decreased and she tolerated ROM of the extremities. She desaturated to 85% during ROM and required total assist for bed mobility. GOals are reset for this patient for 2 more weeks. I plan on progressing her [place] transfer ability working first on bedside sitting. We will monitor and treat closely for therapeutic exercises, transfer training and pre gait activities
--- NOTE | 2022-01-10 15:34 | NUR ---
Angy Santos daughter present at bedside; update provided
--- NOTE | 2022-01-10 16:25 | NUR ---
awake in bed; daughter present at bedside; repositioned to right side; st on monitor; santa to gravity; o2 per vapo; will continue to monitor
--- NOTE | 2022-01-10 17:30 | NUR ---
ermelinda present at bedside; daughter Angy Santos departed
--- NOTE | 2022-01-10 18:23 | NUR ---
pt resting in bed with eyes closed; no apparent distress noted; easily aroused; offers no complaints; iv intact and patent; santa to gravity; repositioned; st on monitor; o2 per vapo therm; call light within reach
--- NOTE | 2022-01-10 20:00 | NUR ---
COMPLETE BED BATH DONE, PATIENT WAS TURNED AND REPOSITIONED.
[2022-01-11] VITALS (30 sets, daily range): BP systolic 85–155; BP diastolic 39–77
[2022-01-11 04:18] LABS: HEMATOCRIT 24.7 % (37.0-47.0); HEMOGLOBIN 7.7 g/dl (12.0-16.0); MEAN CELL VOLUME 101.2 fL CALC (80.0-100.0); MEAN CORPUSCULAR HGB 31.6 pG CALC (26.0-32.0); MEAN CORPUSCULAR HGB CONC 31.2 g/dL CAL (32.0-36.0); RED BLOOD COUNT 2.44 mill/uL (4.20-5.60); RED CELL DISTRI WIDTH 16.8 % (11.5-15.5)
[2022-01-11 04:42] LABS: ALBUMIN 1.8 g/dL (3.2-5.0); ALKALINE PHOSPHATASE 166 u/l (38-126); ANION GAP 4 (6-22 (CALC)); BILIRUBIN, TOTAL 0.3 mg/dL (0.0-1.4); BUN 13 mg/dL (8-23); BUN/CREATININE RATIO 37 (12-20 (CALC)); CARBON DIOXIDE 33 mmol/l (22-30); CHLORIDE 108 mmol/l (95-108); CREATININE 0.4 mg/dL (0.5-1.0); GFR > 60 ML/MIN (>=60 (CALC)); GFR FOR AFR.AMER. > 60 ML/MIN (>=60 (CALC)); POTASSIUM 3.4 mmol/l (3.5-5.1); SGOT/AST 27 u/l (9-36); SODIUM 141 mmol/l (137-146); TOTAL PROTEIN 4.5 g/dL (6.3-8.2)
--- NOTE | 2022-01-11 05:49 | NUR ---
NOTIFIED REGARDING H.H LEVEL OF 7.7 AND KLEVEL OF 3.4 . AWAITING FOR HIS RESPONSE.
--- NOTE | 2022-01-11 06:27 | NUR ---
PT UNABLE TO TOLERATE CPT AT THIS TIME.
--- NOTE | 2022-01-11 08:00 | NUR ---
PT SLEEPING, BUT EASILY AROUSABLE. ANSWERS QUESTIONS APPROPRIATELY. SHOWING NO SIGNS OF DISTRESS. TACHYCARDIC AT REST. BLOOD PRESSURE AND RR WITHIN NORMAL LIMITS. CALL LIGHT WITHIN REACH.
--- NOTE | 2022-01-11 09:52 | NUR ---
PT IS A 81 YOF WHO PRESENTS WITH SEPSIS, BACTEREMIA, PNEUMONIA, AND ULCER INFECTION. ALL MEDS IN PTS CHART WERE REVIEWED. SCR = 1 MG/DL CRCL = 30.5 ML/MIN T = 98.4 F WBC = 9.3 THOUS/UL VANCO TROUGH 01/11 @ 0430 = 13 MCG/ML CONTINIUE VANCOMYCIN 750MG IV Q12H. RE-CHECK TROUGH 01/12 @ 1630. PHARMACY WILL CONTINUE TO FOLLOW.
--- NOTE | 2022-01-11 10:00 | NUR ---
PT GIVEN IV LOPRESSOR FOR TACHYCADIA. INFORMED PHYSICIAN OF FREQUENCY OF PRN LOPRESSOR. INCREASED SCHEDULED PO DOSE TO 50MG TWICE DAILY.
--- NOTE | 2022-01-11 10:15 | NUR ---
TUBE FEED BOLUS GIVEN.
--- NOTE | 2022-01-11 12:00 | NUR ---
PT AWAKE AT THIS TIME. DENIES PAIN. VITAL SIGNS WITHIN NORMAL LIMITS. PT TURNED AND REPOSITIONED IN BED. ORAL CARE COMPLETED. PT HAS A WEAK COUGH, VERY SMALL AMOUT OF SECRETIONS.
--- NOTE | 2022-01-11 12:20 | NUR ---
PTS DAUGHTER RICARDO CALLED, UPDATE GIVEN.
--- NOTE | 2022-01-11 14:00 | NUR ---
TUBE FEED BOLUS GIVEN. PT HAD NO RESIDUAL BEFORE BOLUS.
--- NOTE | 2022-01-11 14:08 | NUR ---
PT TACHYPNIC IN THE HIGH 40'S. SUCTIONED, WITH MINIMAL SECRETIONS. GAVE PT PRN MORPHINE. RR IMPROVED. HR IMPROVING.
--- NOTE | 2022-01-11 16:07 | NUR ---
PT COUGHING MORE FREQUENTLY. SUCTIONED WHAT COULD POSSIBLY BE TUBEFEED. PT HAD ALREADY RECEVED HER AFTERNOON BOLUS AND THERE WAS NO RESIDUAL BEFORE IT WAS GIVEN. PT LOOKS MORE COMFORTABLE AFTER BEING SUCTIONED. VITAL SIGNS WITHIN NORMAL LIMITS. CALL LIGHT WITHIN HER REACH. WILL CONTINUE TO MONITOR.
--- NOTE | 2022-01-11 20:00 | NUR ---
Complete bed bath given .patient turned and repositioned. oral care done
[2022-01-12] VITALS (26 sets, daily range): BP systolic 88–136; BP diastolic 40–70
--- NOTE | 2022-01-12 00:40 | NUR ---
patient resting in bed. no s/s of distress noted.
[2022-01-12 05:17] LABS: HEMATOCRIT 27.5 % (37.0-47.0); HEMOGLOBIN 8.6 g/dl (12.0-16.0); IMMATURE GRANULOCYTES 2.3 % (0.0-5.0); MEAN CELL VOLUME 102.2 fL CALC (80.0-100.0); MEAN CORPUSCULAR HGB CONC 31.3 g/dL CAL (32.0-36.0); NEUT# 9.54 thou/uL (2.00-7.15); RED BLOOD COUNT 2.69 mill/uL (4.20-5.60); RED CELL DISTRI WIDTH 17.2 % (11.5-15.5)
[2022-01-12 05:23] LABS: ALKALINE PHOSPHATASE 169 u/l (38-126); ANION GAP 5 (6-22 (CALC)); BILIRUBIN, TOTAL 0.3 mg/dL (0.0-1.4); BUN 14 mg/dL (8-23); BUN/CREATININE RATIO 32 (12-20 (CALC)); CARBON DIOXIDE 34 mmol/l (22-30); CHLORIDE 105 mmol/l (95-108); CREATININE 0.4 mg/dL (0.5-1.0); GFR > 60 ML/MIN (>=60 (CALC)); GFR FOR AFR.AMER. > 60 ML/MIN (>=60 (CALC)); SGOT/AST 31 u/l (9-36); SODIUM 141 mmol/l (137-146); TOTAL PROTEIN 5.2 g/dL (6.3-8.2)
--- NOTE | 2022-01-12 08:00 | NUR ---
patient is alert to self and . denies pain at this time, no visual distress noted at this time. 2mm perrl bilateral eyes. garbled/soft speech. weak cough, suctioned as needed, thick/foam/ sputum in suction container. oral care provided. dry lips, lip balm applied. repositioned patien on her left side, pillow is now under her right side. pillows elevating bilateral arms, pitting edema on bilateral lower arms/hands 3+.scattered bruises and scabs throughout arms and lower legs. right escar/scab on left heel. peg tube in place, no drainage noted, zero residual. falt non tender abdomen. active bowel sounds present. did not squeeze my hands when asked. unable to move arms or legs when asked. scab on right big toe. wound vac is on, wound is clean dry and connected to machine. barrier cream applied to bilateral buttocks and periarea. swollen periarea. bilateral feet elevated on pillows to off load pressure. weak pedal pulses. cool/dry skin. flushed TLC. patient continues to be DNR. elevated heart rate of 109 at rest. vapotherm continues to 12L 35%O2, o2 sats 98%. safety measures in place. call light in reach. will continue to monitor per hospital's policy.
--- NOTE | 2022-01-12 10:00 | NUR ---
PROVIDED ORAL CARE, PEG TUBE FEED, DENIES PAIN. SAFETY MEASURES IN PLACE.
--- NOTE | 2022-01-12 12:00 | NUR ---
PATIENT SITTING UP IN BED, TV IS ON [employer] CHANNEL. RESTING IN BED.
--- NOTE | 2022-01-12 14:00 | NUR ---
ORAL CARE PROVIDED, REFUSED TO BE SUCTIONED. ZERO RESIUDAL. PEG FEED PROVIDED.
--- NOTE | 2022-01-12 16:00 | NUR ---
PATIENT IS RESTING IN BED, [employer] CHANNEL IS ON.
--- NOTE | 2022-01-12 18:00 | NUR ---
PROVIDED ORAL CARE, REFUSED SUCTION, ZERO RESIDUAL. PEG FEEDING COMPLETED.
[2022-01-13] VITALS (18 sets, daily range): BP systolic 88–130; BP diastolic 37–73
[2022-01-13 05:19] LABS: HEMATOCRIT 25.7 % (37.0-47.0); HEMOGLOBIN 8.1 g/dl (12.0-16.0); IMMATURE GRANULOCYTES 1.3 % (0.0-5.0); MEAN CELL VOLUME 102.4 fL CALC (80.0-100.0); MEAN CORPUSCULAR HGB 32.3 pG CALC (26.0-32.0); MEAN CORPUSCULAR HGB CONC 31.5 g/dL CAL (32.0-36.0); NEUT# 7.86 thou/uL (2.00-7.15); RED BLOOD COUNT 2.51 mill/uL (4.20-5.60); RED CELL DISTRI WIDTH 17.4 % (11.5-15.5)
[2022-01-13 05:40] LABS: ANION GAP 6 (6-22 (CALC)); BUN 18 mg/dL (8-23); BUN/CREATININE RATIO 51 (12-20 (CALC)); CARBON DIOXIDE 32 mmol/l (22-30); CHLORIDE 106 mmol/l (95-108); CREATININE 0.4 mg/dL (0.5-1.0); GFR > 60 ML/MIN (>=60 (CALC)); GFR FOR AFR.AMER. > 60 ML/MIN (>=60 (CALC)); SODIUM 141 mmol/l (137-146)
--- NOTE | 2022-01-13 06:49 | NUR ---
PT DOES NOT TOLERATE CPT AT THIS TIME.
--- NOTE | 2022-01-13 09:38 | NUR ---
RECEIVED CALL FROM CIPRIANO FROM [facility]. ASKED QUESTIONS REGARDING PTS CURRENT CONDITION. SHE WILL FOLLOWUP REGARDING BEST TIME TO TRANSFER.
[2022-01-13] MEDS ORDERED: LOPRESSOR 550 MG/TAB PO (13:06)
[2022-01-13] MEDS ORDERED: VANCOMYCIN HYDRO1 GM IV (13:16)
[2022-01-13] MEDS ORDERED: XARELTO20 MG PO (13:16)
[2022-01-13] MEDS ORDERED: DIFLUCAN IV (13:16)
[2022-01-13] MEDS ORDERED: CEFEPIME2 GM IV (13:16)
--- NOTE | 2022-01-13 14:22 | NUR ---
Attempted treatment but in process of D/c.
--- NOTE | 2022-01-13 14:30 | NUR ---
PT BEING TRANSFERRRED TO [facility] AND TRANSPORT TEAM AT BEDSIDE. REMOVED WOUND VAC FROM PTS SACRUM. PLACED WET TO DRY DRESSING. PT PLACED ON NON REBREATHER MASK FOR TRANSPORT. PT O2SAT AT 96%. PT GIVEN IV MORPHINE FOR PAIN. VITAL SIGNS WITHIN NORMAL LIMITS. PT LEFT WITH HER PERSONAL BLANKET, NO OTHER POSSESSIONS FOUND IN THE ROOM. PTS DAUGHTER WAS THERE TO SEE HER MOTHER BEFORE BEING TRANSFERRED.
--- NOTE | 2022-01-13 14:50 | NUR ---
CALLED [facility] AND SPOKE TO NURSE TAKING OVER PTS CARE. REPORT GIVEN. ETA IS ONE HOUR PER TRANSPORTATION TEAM.
== END 2022-01-13 14:50 | DRG 853 ==
LOC: ED 10:34 → ED-I 13:30 → ED 13:45 → ICU 13:46
PROVIDERS: Family Medicine; Internal Medicine; Nurse Practitioner; ADMIT Hospitalist; ATTEND Hospitalist
PROC: 06HY33Z Insertion of Infusion Device into Lower Vein, Percutaneous Approach (ICD-10-PCS; principal; 2022-01-04)
PROC: 5A09357 Assistance with Respiratory Ventilation, Less than 24 Consecutive Hours, Continuous Positive Airway Pressure (ICD-10-PCS; 2022-01-04)
PROC: 0KBP0ZZ Excision of Left Hip Muscle, Open Approach (ICD-10-PCS; 2022-01-07)
PROC: 0KBN0ZZ Excision of Right Hip Muscle, Open Approach (ICD-10-PCS; 2022-01-07)
PROC: 02HV33Z Insertion of Infusion Device into Superior Vena Cava, Percutaneous Approach (ICD-10-PCS; 2022-01-09)
DX: A41.1 Sepsis due to other specified staphylococcus (principal); L89.154 Pressure ulcer of sacral region, stage 4; J96.01 Acute respiratory failure with hypoxia; J69.0 Pneumonitis due to inhalation of food and vomit; E87.3 Alkalosis; E87.2 Acidosis; E46 Unspecified protein-calorie malnutrition; Z68.1 Body mass index [BMI] 19.9 or less, adult; I82.411 Acute embolism and thrombosis of right femoral vein; R65.20 Severe sepsis without septic shock; I10 Essential (primary) hypertension; E78.5 Hyperlipidemia, unspecified; L08.9 Local infection of the skin and subcutaneous tissue, unspecified; E87.70 Fluid overload, unspecified; E87.6 Hypokalemia; G20 Parkinson's disease; G40.909 Epilepsy, unspecified, not intractable, without status epilepticus; F41.9 Anxiety disorder, unspecified; F32.A Depression, unspecified; B96.20 Unspecified Escherichia coli [E. coli] as the cause of diseases classified elsewhere; Z66 Do not resuscitate; Z85.048 Personal history of other malignant neoplasm of rectum, rectosigmoid junction, and anus; Z92.21 Personal history of antineoplastic chemotherapy; Z74.01 Bed confinement status; Z92.3 Personal history of irradiation; Z93.1 Gastrostomy status; Z20.822 Contact with and (suspected) exposure to COVID-19
CPT/HCPCS: G0328; J0692; J1650; J2060; J3370; Q3014; Q9967; S0164